=== PATIENT | female | born 1995 | race Caucasian/White ===

== ENCOUNTER 2018-04-25 22:52 | Emergency (ER) | payer SELFPAY ==
--- NOTE | 2018-04-25 22:55 | ERPHSYRPT ---
- History of Present Illness Time Seen by Provider: 04/25/18 22:54 Source: patient Exam Limitations: no limitations, clinical condition Physician History: 22 y/o white female presents with soa. 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 pt has nkda. pt does not have asthma. pt was not exposed to any allergens. pt does not have any cardiac issues. 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) Activities at Onset: none Severity of Dyspnea-Max: moderate Severity of Dyspnea-Current: moderate Possible Cause: no prior episodes Modifying Factors: Improves With: other (stress) Associated Symptoms: anxiety, No chest pain/discomfort, No edema, No ankle swelling, No leg swelling, No muscle spasms hands, No painful breathing, No productive cough, No tightness, No tingling face, No tingling hands Allergies/Adverse Reactions: No Known Drug Allergies Allergy (Verified 04/25/18 23:52) Hx Tetanus, Diphtheria Vaccination/Date Given: Yes Hx Influenza Vaccination/Date Given: Yes Hx Pneumococcal Vaccination/Date Given: No - Review of Systems Constitutional: No Symptoms Eyes: No Symptoms Ears, Nose, & Throat: No Symptoms Respiratory: Dyspnea, No Cough, No Stridor, No Wheezing Cardiac: No Symptoms, No Chest Pain, No Palpitations, No Syncope Abdominal/Gastrointestinal: No Symptoms, No Abdominal Pain, No Nausea, No Vomiting, No Diarrhea Genitourinary Symptoms: No Symptoms, No Dysuria, No Frequency, No Hematuria Musculoskeletal: No Symptoms Skin: No Symptoms Neurological: No Symptoms Psychological: Anxiety Endocrine: No Symptoms Hematologic/Lymphatic: No Symptoms Immunological/Allergic: No Symptoms All Other Systems: Reviewed and Negative - Past Medical History Pertinent Past Medical History: No Neurological History: No Pertinent History ENT History: No Pertinent History Cardiac History: No Pertinent History Respiratory History: No Pertinent History Endocrine Medical History: No Pertinent History Musculoskeletal History: No Pertinent History GI Medical History: No Pertinent History History: No Pertinent History Psycho-Social History: Anxiety, Other (stress) Female Reproductive Disorders: No Pertinent History Other Medical History: denies patient states she is 19 weeks - Past Surgical History Past Surgical History: No Neuro Surgical History: No Pertinent History Cardiac: No Pertinent History Respiratory: No Pertinent History Gastrointestinal: No Pertinent History Genitourinary: No Pertinent History Musculoskeletal: No Pertinent History Female Surgical History: No Pertinent History Other Surgical History: Pt denies - Social History Smoking Status: Never smoker Exposure to second hand smoke: Yes Drug Use: none Patient Lives Alone: No - Nursing Vital Signs Nursing Vital Signs: Initial Vital Signs Temperature 98.1 F 04/25/18 22:57 Pulse Rate 108 H 04/25/18 22:57 Respiratory Rate 28 H 04/25/18 22:57 Blood Pressure 176/105 04/25/18 22:57 O2 Sat by Pulse Oximetry 100 04/25/18 22:57 - Physical Exam General Appearance: mild distress, alert, anxiety Eye Exam: PERRL/EOMI Ears, Nose, Throat Exam: hearing grossly normal, normal ENT inspection, normal pharynx Neck Exam: normal inspection, non-tender, supple, full range of motion Respiratory Exam: normal breath sounds, lungs clear, airway intact, No chest tenderness, No respiratory distress, No accessory muscle use, No rhonchi, No wheezing Cardiovascular/Chest Exam: tachycardia Abdominal/Gastrointestinal Exam: soft, normal bowel sounds, No tenderness, No guarding, No rebound Rectal Exam: not done Extremity Exam: non-tender, normal range of motion, normal inspection Neurologic Exam: alert, oriented x 3, cooperative, 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 Skin Exam: normal color, warm, dry Lymphatic Exam: No adenopathy SpO2 Interpretation: normal Oxygen Delivery: Room Air - Course Nursing assessment & vital signs reviewed: Yes EKG Interpreted by Me: RATE (90), Sinus Rhythm, NORMAL AXIS, NORMAL INTERVALS, NORMAL QRS, Other (no comparison ekg) Ordered Tests: Active Orders 24 hr Category Date Time Status Knowledge Architect STAT Care 04/25/18 23:06 Active IV Insertion STAT Care 04/25/18 23:05 Active Pulse Oximetry (ED) STAT Care 04/25/18 23:05 Active CHEST 1 VIEW (PORTABLE) Stat Exams 04/25/18 23:25 Taken BMP Stat Lab 04/25/18 22:00 Completed CBC W DIFF Stat Lab 04/25/18 22:00 Completed D-DIMER QUANTITATION Stat Lab 04/25/18 22:00 Completed NT PRO BNP Stat Lab 04/25/18 22:00 Completed Medication Summary Discontinued Medications Generic Name Dose Route Start Last Admin Trade Name Freq PRN Reason Stop Dose Admin Lorazepam 1 mg 04/25/18 23:05 04/25/18 23:36 Ativan 2 Mg/1 Ml Vial IV 04/25/18 23:06 1 mg STAT ONE Administration Lorazepam Confirm 04/25/18 23:34 Ativan 2 Mg/1 Ml Vial Administered 04/25/18 23:35 Dose 2 mg .ROUTE .STK-MED ONE Lab/Rad Data: Laboratory Result Diagrams 04/25/18 22:00 04/25/18 22:00 Laboratory Results 04/25/18 04/25/18 04/25/18 Range/Units 22:00 22:00 22:00 WBC 11.4 H (4.0-10.5) K/mm3 RBC 4.64 (4.1-5.4) M/mm3 Hgb 14.0 (12.0-16.0) gm/dl Hct 41.8 (35-47) % MCV 90.1 (78-100) fl MCH 30.2 (26-32) pg MCHC 33.5 (32-36) g/dl RDW 12.6 (11.5-14.0) % Plt Count 371 (150-450) K/mm3 MPV 9.6 H (6-9.5) fl Gran % 48.3 (36.0-66.0) % Eos # (Auto) 0.84 H (0-0.5) Absolute Lymphs (auto) 4.24 (1.0-4.6) Absolute Monos (auto) 0.76 (0.0-1.3) Lymphocytes % 37.2 (24.0-44.0) % Monocytes % 6.7 (0.0-12.0) % Eosinophils % 7.4 H (0.00-5.0) % Basophils % 0.4 (0.0-0.4) % Absolute Granulocytes 5.52 (1.4-6.9) Basophils # 0.04 (0-0.4) D-Dimer < 215 L (215-500) ng/mL Sodium 143 (137-145) mmol/L Potassium 3.0 L (3.5-5.1) mmol/L Chloride 104 (98-107) mmol/L Carbon Dioxide 24 (22-30) mmol/L Anion Gap 18.0 H (5-15) MEQ/L BUN 7 (7-17) mg/dL Creatinine 0.65 (0.52-1.04) mg/dL Estimated GFR > 60.0 ML/MIN Glucose 136 H (74-106) mg/dL Calcium 8.8 (8.4-10.2) mg/dL NT-Pro-B Natriuret Pep 161 (0-450) pg/mL - Progress Progress: improved, re-examined Air Movement: good Progress Note: 04/25/18 23:54 cxr- no acute process Blood Culture(s) Obtained: No Antibiotics given: No Counseled pt/family regarding: lab results, diagnosis, need for follow-up, rad results - Departure Time of Disposition: 23:55 Departure Disposition: Home Clinical Impression: Bronchitis, Hypokalemia Condition: Stable Critical Care Time: No Referrals: DONNY REILLY [Primary Care Provider] - Additional Instructions: drink plenty of fluids. eat nut and green leafy vegetable. follow up with primary doctor for further management Prescriptions: Prednisone 10 mg [Deltasone 10 mg] 10 mg PO TID #9 tablet
[2018-04-25] MEDS ORDERED: Ativan 2 MG/1 ML VIAL IV ONE (23:05)
[2018-04-25 23:17] LABS: BASOPHIL % 0.4 % (0.0-0.4); Basophil (Absolute #) 0.04 (0-0.4); Eosinophil % 7.4 % (0.00-5.0); Eosinophil (Absolute #) 0.84 (0-0.5); Granulocyte Absolute (ANC) 5.52 (1.4-6.9); Granulocytes % 48.3 % (36.0-66.0); Hematocrit 41.8 % (35-47); Lymphocyte (Absolute #) 4.24 (1.0-4.6); Lymphocytes % 37.2 % (24.0-44.0); Mean Cell Volume 90.1 fl (78-100); Mean Corpuscular Hemoglobin 30.2 pg (26-32); Mean Corpuscular Hgb Concent. 33.5 g/dl (32-36); Mean Platelet Volume 9.6 fl (6-9.5); Monocyte (Absolute #) 0.76 (0.0-1.3); Monocytes % 6.7 % (0.0-12.0); Platelet Count 371 K/mm3 (150-450); Red Blood Count 4.64 M/mm3 (4.1-5.4); Red Cell Distribution Width 12.6 % (11.5-14.0); White Blood Count 11.4 K/mm3 (4.0-10.5)
[2018-04-25] MEDS ORDERED: Ativan 2 MG/1 ML VIAL ONE (23:34)
[2018-04-25 23:41] LABS: BLOOD UREA NITROGEN 7 mg/dL (7-17); CHLORIDE 104 mmol/L (98-107); Calcium 8.8 mg/dL (8.4-10.2); Carbon Dioxide 24 mmol/L (22-30); Creatinine 1 0.65 mg/dL (0.52-1.04); Glucose 136 mg/dL (74-106); NT PRO BNP 161 pg/mL (0-450); SODIUM 143 mmol/L (137-145)
[2018-04-25] MEDS ORDERED: solu-MEDROL 125 MG IV ONE (23:57)
[2018-04-25] MEDS ORDERED: Klor Con 10 MEQ PO ONE (23:57)
[2018-04-26] MEDS ORDERED: solu-MEDROL 125 MG ONE (00:05)
[2018-04-26] MEDS ORDERED: Klor Con 10 MEQ PO ONE (00:05)
[2018-04-26 00:07] VITALS: BP 141/80; PULSE 88; O2SAT 96
--- NOTE | 2018-04-26 09:12 | XRAY ---
Indication: Short of breath. Anxiety. Comparison: None Portable chest demonstrates normal heart, lungs, and bony thorax with a few incidental tiny calcified granulomas.
== END 2018-04-26 00:47 | disposition home or self-care (01) ==
LOC: ED 22:52
DX: O26.892 Other specified pregnancy related conditions, second trimester (principal); J40 Bronchitis, not specified as acute or chronic; E87.6 Hypokalemia; Z3A.19 19 weeks gestation of pregnancy; R06.02 Shortness of breath
CPT/HCPCS: 36000; 36415; 71045; 80048; 83880; 85025; 85379; 93041; 96374; 96375; 99284; J2060; J2930; A9270-GY

== ENCOUNTER 2019-12-13 12:32 | Emergency (ER) | payer BC, MEDICAID ==
[2019-12-13 13:11] VITALS: O2SAT 100
--- NOTE | 2019-12-13 13:11 | ERPHSYRPT ---
- History of Present Illness Time Seen by Provider: 12/13/19 12:51 Source: patient Exam Limitations: no limitations Patient Subjective Stated Complaint: Laceration Triage Nursing Assessment: Patient ambulated back to ED and transferred self to bed. Patient A+O X3. Patient's skin pink, warm and dry. Patient states she was holding celery while cutting it when the knife slipped cutting her left hand, 4th digit. Patient has 1cm X 1cm laceration noted to left hand, 4th digit. Patient states pain is constant aching pain 5/10. Physician History: 24 years old right-handed dominant female up-to-date with tetanus presented in the ER with chief complaint of left fourth digit laceration with a sharp knife while cutting some stuff at home prior to arrival. There was bleeding initially but stopped after applying pressure. She is complaining of mild to moderate dull aching pain in the finger which is aggravated with movements and applying pressure and better with being still. No injury anywhere else. Timing/Duration: today, sudden Quality: painful Severity: moderate Location: hands Allergies/Adverse Reactions: No Known Drug Allergies Allergy (Verified 12/13/19 12:40) Hx Tetanus, Diphtheria Vaccination/Date Given: (unknown) Hx Influenza Vaccination/Date Given: No Hx Pneumococcal Vaccination/Date Given: No Immunizations Up to Date: Yes Travel Risk - International Travel Have you traveled outside of the country in past 3 weeks: No - Coronavirus Screening Are you exhibiting any of the following symptoms?: No Close contact with a COVID-19 positive Pt in past 14-21 Days: No - Review of Systems Constitutional: No Symptoms Eyes: No Symptoms Ears, Nose, & Throat: No Symptoms Respiratory: No Symptoms Cardiac: No Symptoms Abdominal/Gastrointestinal: No Symptoms Musculoskeletal: Injury Skin: Skin Lesions Neurological: No Symptoms Psychological: Anxiety - Past Medical History Pertinent Past Medical History: No Neurological History: No Pertinent History ENT History: No Pertinent History Cardiac History: No Pertinent History Respiratory History: No Pertinent History Endocrine Medical History: No Pertinent History Musculoskeletal History: No Pertinent History GI Medical History: No Pertinent History History: No Pertinent History Psycho-Social History: Anxiety, Other Female Reproductive Disorders: No Pertinent History Other Medical History: denies patient states she is 19 weeks - Past Surgical History Past Surgical History: No Neuro Surgical History: No Pertinent History Cardiac: No Pertinent History Respiratory: No Pertinent History Gastrointestinal: No Pertinent History Genitourinary: No Pertinent History Musculoskeletal: No Pertinent History Female Surgical History: No Pertinent History Other Surgical History: Pt denies - Social History Smoking Status: Never smoker Exposure to second hand smoke: Yes Drug Use: none Patient Lives Alone: No - Female History Hx Last Menstrual Period: 2 weeks ago Hx Now: No - Nursing Vital Signs Nursing Vital Signs: Initial Vital Signs Temperature 98.4 F 12/13/19 12:40 Pulse Rate 98 H 12/13/19 12:40 Respiratory Rate 18 12/13/19 12:40 Blood Pressure 142/102 12/13/19 12:40 O2 Sat by Pulse Oximetry 100 12/13/19 12:40 Pain Scale Pain Intensity 4 - Physical Exam General Appearance: no apparent distress Eye Exam: eyes nml inspection Neck Exam: normal inspection Respiratory Exam: normal breath sounds, lungs clear Cardiovascular Exam: regular rate/rhythm, normal heart sounds Extremity Exam: normal range of motion, lacerations (3 cm linear to carb laceration on left for finger pulp on the lateral aspect closer to the lateral end of the nail and going to the tip. No active bleeding or spurting. Cap refill less than 2 seconds. Intact sensations.) Neurologic Exam: alert, oriented x 3, nml cerebellar function Skin Exam: normal color SpO2 Interpretation: normal SpO2: 100 O2 Delivery: Room Air Procedures - Laceration/Wound Repair Left Finger Wound Location: Left Wound Length (cm): 3 Wound's Depth, Shape: superficial, linear Wound Explored: clean Irrigated: Yes Hibiclens Prep: Yes Anesthesia: digital block, 1% Lidocaine Wound Repaired With: sutures Suture Size/Type: 4-0, prolene Number of Sutures: 5 Layer Closure?: No Sterile Dressing Applied?: Yes - Course Nursing assessment & vital signs reviewed: Yes - Progress Progress: improved Progress Note: 12/13/19 13:19 Laceration is cleaned and repaired. Recommended Tylenol/ibuprofen for pain. It is a clean wound, do not think needs antibiotics. Counseled pt/family regarding: diagnosis, need for follow-up - Departure Departure Disposition: Home Clinical Impression: Finger laceration Qualifiers: Encounter type: initial encounter Finger: ring finger Damage to nail status: without damage Foreign body presence: without foreign body Laterality: left Qualified Code(s): S61.215A - Laceration without foreign body of left ring finger without damage to nail, initial encounter Condition: Stable Critical Care Time: No Referrals: DONNY REILLY [Primary Care Provider] - Instructions: Laceration Repair With Stitches (DC) Additional Instructions: It clean. Use Tylenol/ibuprofen as needed for pain. Follow-up with primary care for reevaluation. Suture removal in 7 to 10 days. Return to ER for excruciating pain, swelling, redness, discharge, fever or chills. Prescriptions: Ibuprofen 600 mg PO Q6HPRN PRN 10 Days #20 tablet PRN Reason: Pain
[2019-12-13 13:21] VITALS: BP 118/90; PULSE 78
== END 2019-12-13 13:20 | disposition home or self-care (01) ==
LOC: ED 12:32
DX: S61.215A Laceration without foreign body of left ring finger without damage to nail, initial encounter (principal); W26.0XXA Contact with knife, initial encounter; Y93.G1 Activity, food preparation and clean up
CPT/HCPCS: 12002; 99283

== ENCOUNTER 2020-06-24 01:43 | Emergency (ER) | payer SELFPAY ==
[2020-06-24 01:54] VITALS: O2SAT 99
--- NOTE | 2020-06-24 02:04 | ERPHSYRPT ---
- History of Present Illness Time Seen by Provider: 06/24/20 01:55 Source: patient Patient Subjective Stated Complaint: pt brought in for senior care clearance. pt states she has smoked some fake marijuana tonight and took a xanax earlier in the day Triage Nursing Assessment: pt alert and oriented, answers questions approp. pt ambularoty, steady gait noted. arrives with law enforcement and ambulates into room without diff. respirations nonlabored. skin warm and dry. pt cooperative at this time. Physician History: This is a 24-year-old white female who presents with law enforcement for medical clearance for incarceration. Patient admits to consuming synthetic marijuana but no alcohol use. She also took a Xanax earlier today. She has no complaints whatsoever. She has no chest pain no shortness of breath no abdominal pain. Timing/Duration: today Severity: mild Modifying Factors: Improves With: nothing Associated Symptoms: denies symptoms Allergies/Adverse Reactions: No Known Drug Allergies Allergy (Verified 06/24/20 01:54) Home Medications: No Reportable Medications [No Reported Medications] 06/24/20 [History] Hx Tetanus, Diphtheria Vaccination/Date Given: Yes (unknown) Hx Influenza Vaccination/Date Given: No Hx Pneumococcal Vaccination/Date Given: No Immunizations Up to Date: Yes Travel Risk - International Travel Have you traveled outside of the country in past 3 weeks: No - Coronavirus Screening Are you exhibiting any of the following symptoms?: No Close contact with a COVID-19 positive Pt in past 14-21 Days: No - Review of Systems Constitutional: No Symptoms Eyes: No Symptoms Ears, Nose, & Throat: No Symptoms Respiratory: No Symptoms Cardiac: No Symptoms Abdominal/Gastrointestinal: No Symptoms Genitourinary Symptoms: No Symptoms Musculoskeletal: No Symptoms Skin: No Symptoms Neurological: No Symptoms Psychological: No Symptoms Endocrine: No Symptoms Hematologic/Lymphatic: No Symptoms Immunological/Allergic: No Symptoms All Other Systems: Reviewed and Negative - Past Medical History Pertinent Past Medical History: No Neurological History: No Pertinent History ENT History: No Pertinent History Cardiac History: No Pertinent History Respiratory History: No Pertinent History Endocrine Medical History: No Pertinent History Musculoskeletal History: No Pertinent History GI Medical History: No Pertinent History History: No Pertinent History Psycho-Social History: Anxiety, Other Female Reproductive Disorders: No Pertinent History Other Medical History: denies patient states she is 19 weeks - Past Surgical History Past Surgical History: No Neuro Surgical History: No Pertinent History Cardiac: No Pertinent History Respiratory: No Pertinent History Gastrointestinal: No Pertinent History Genitourinary: No Pertinent History Musculoskeletal: No Pertinent History Female Surgical History: No Pertinent History Other Surgical History: Pt denies - Social History Smoking Status: Current some day smoker Exposure to second hand smoke: Yes Drug Use: other Patient Lives Alone: No - Female History Hx Last Menstrual Period: current Hx Now: No - Nursing Vital Signs Nursing Vital Signs: Initial Vital Signs Temperature 98.3 F 06/24/20 01:46 Pulse Rate 90 06/24/20 01:46 Respiratory Rate 16 06/24/20 01:46 Blood Pressure 143/107 06/24/20 01:46 O2 Sat by Pulse Oximetry 99 06/24/20 01:46 Pain Scale Pain Intensity 0 - Physical Exam General Appearance: no apparent distress, alert, anxiety Eye Exam: PERRL/EOMI, eyes nml inspection Ears, Nose, Throat Exam: normal ENT inspection, moist mucous membranes Neck Exam: normal inspection, non-tender, supple, full range of motion Respiratory Exam: normal breath sounds, lungs clear, airway intact, No chest tenderness, No respiratory distress Cardiovascular Exam: regular rate/rhythm, normal heart sounds, normal peripheral pulses Gastrointestinal/Abdomen Exam: soft, normal bowel sounds, No tenderness Pelvic Exam: not done Rectal Exam: not done Back Exam: normal inspection, normal range of motion, No CVA tenderness, No vertebral tenderness Extremity Exam: normal inspection, normal range of motion, pelvis stable Neurologic Exam: alert, oriented x 3, cooperative, 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 Clinically, the patient is stable and medically cleared for incarceration. Counseled pt/family regarding: diagnosis, need for follow-up - Departure Departure Disposition: Halfway/Group Home Clinical Impression: Medical clearance for incarceration Condition: Stable Critical Care Time: No Referrals: DONNY REILLY [Primary Care Provider] -
[2020-06-24 02:16] VITALS: BP 131/90; PULSE 84
== END 2020-06-24 02:24 | disposition home or self-care (01) ==
LOC: ED 01:43
DX: Z02.89 Encounter for other administrative examinations (principal)
CPT/HCPCS: 99283

== ENCOUNTER 2023-07-12 03:07 | Observation (INO) | payer OTHER ==
[2023-07-12] MEDS ORDERED: PROVENTIL 2.5 MG/3 ML NEB IH ONE (03:11)
[2023-07-12] MEDS: PROVENTIL 2.5 MG/3 ML NEB IH ONE (03:16)
[2023-07-12] MEDS ORDERED: solu-MEDROL ONE (03:30)
[2023-07-12] MEDS ORDERED: Sterile H2O 10 ml IJ ONE (03:30)
[2023-07-12] MEDS ORDERED: Zithromax 500 MG/ 250 ML NaCl Premix 0 MG/0 ML IVPB IV ONE (03:37)
--- NOTE | 2023-07-12 03:38 | ERPHSYRPT ---
- History of Present Illness Time Seen by Provider: 07/12/23 03:30 Source: patient Exam Limitations: no limitations Patient Subjective Stated Complaint: pt states that she has had this cough for the past month. pt states she finished a medroldose pack a week and a half ago. pt states that she can't catch her breath Triage Nursing Assessment: pt ambulated into the er; pt is axo x4; c/o SOB; respiratory distress present; audible wheezing present; upper airway wheezing; 99% on room air; dry hacking cough present; skin PDW; hypertensive Physician History: Patient is a 27-year-old female history of exercise-induced asthma, current smoker presents to our emergency department for evaluation of of shortness of breath. Patient has had a cough for approximately 1 month. Cough is dry nonproductive. She followed up at [facility] patient reports she was treated with a Medrol Dosepak. Patient just completed her Medrol Dosepak and states that her symptoms did not improve. Patient shortness of breath has been progressive. Patient is wheezing. No fever. No nausea vomiting. No history of PE DVT. Symptoms are moderate in intensity. Activity worsens symptoms. Symptoms improved with rest. Mother at bedside. They voiced no other complaints or concerns at this time. Portions of this note were created with voice recognition technology. There may be grammatical, spelling, punctuation or sound alike errors Timing/Duration: week(s) (1 month) Activities at Onset: none Severity of Dyspnea-Max: moderate Severity of Dyspnea-Current: mild Possible Cause: occasional episodes Modifying Factors: Improves With: activity Associated Symptoms: cough, No fever, No wheezing Allergies/Adverse Reactions: No Known Drug Allergies Allergy (Verified 07/12/23 03:08) Home Medications: Phentermine HCl [Adipex-P] 37.5 mg PO DAILY 07/12/23 [History] Topiramate [Topamax] 25 mg PO DAILY 07/12/23 [History] Hx Tetanus, Diphtheria Vaccination/Date Given: Yes (unknown) Hx Influenza Vaccination/Date Given: No Hx Pneumococcal Vaccination/Date Given: No Travel Risk - International Travel Have you traveled outside of the country in past 3 weeks: No - Coronavirus Screening Are you exhibiting any of the following symptoms?: Yes Symptoms: Cough: New Onset, Shortness of Breath - Vaccine Status Have you recieved a Covid-19 vaccination: Yes Mold Injector: Unknown - Vaccination Dates Dates if Unknown: 2020 - Review of Systems Constitutional: No Symptoms, No Fever, No Chills Eyes: No Symptoms Ears, Nose, & Throat: No Symptoms Respiratory: No Symptoms, No Cough, No Dyspnea Cardiac: No Symptoms, No Chest Pain, No Edema, No Syncope Abdominal/Gastrointestinal: No Symptoms, No Abdominal Pain, No Nausea, No Vomiting, No Diarrhea Genitourinary Symptoms: No Symptoms, No Dysuria Musculoskeletal: No Symptoms, No Back Pain, No Neck Pain Skin: No Symptoms, No Rash Neurological: No Symptoms, No Dizziness, No Focal Weakness, No Sensory Changes Psychological: No Symptoms Endocrine: No Symptoms Hematologic/Lymphatic: No Symptoms Immunological/Allergic: No Symptoms All Other Systems: Reviewed and Negative - Past Medical History Pertinent Past Medical History: Yes Neurological History: No Pertinent History ENT History: No Pertinent History Cardiac History: No Pertinent History Respiratory History: No Pertinent History Endocrine Medical History: No Pertinent History Musculoskeletal History: No Pertinent History GI Medical History: No Pertinent History History: No Pertinent History Psycho-Social History: Anxiety, Other Female Reproductive Disorders: No Pertinent History Other Medical History: denies patient states she is 19 weeks - Past Surgical History Past Surgical History: No Neuro Surgical History: No Pertinent History Cardiac: No Pertinent History Respiratory: No Pertinent History Gastrointestinal: No Pertinent History Genitourinary: No Pertinent History Musculoskeletal: No Pertinent History Female Surgical History: No Pertinent History Other Surgical History: Pt denies - Social History Smoking Status: Light tobacco smoker Exposure to second hand smoke: Yes Drug Use: other Patient Lives Alone: No - Female History Hx Now: No - Nursing Vital Signs Nursing Vital Signs: Initial Vital Signs Temperature 97.4 F 07/12/23 03:07 Pulse Rate 109 H 07/12/23 03:07 Respiratory Rate 20 07/12/23 03:07 Blood Pressure 166/117 07/12/23 03:07 O2 Sat by Pulse Oximetry 99 07/12/23 03:07 Pain Scale Pain Intensity 5 - Physical Exam General Appearance: no apparent distress, alert Eye Exam: PERRL/EOMI Ears, Nose, Throat Exam: hearing grossly normal, normal ENT inspection, normal pharynx Neck Exam: normal inspection, supple, full range of motion Respiratory Exam: diminished breath sounds, rhonchi, wheezing Cardiovascular/Chest Exam: normal heart sounds, regular rate/rhythm Abdominal/Gastrointestinal Exam: soft, No tenderness, No distention, No mass Extremity Exam: non-tender, normal range of motion, normal inspection, no calf tenderness, no pedal edema Neurologic Exam: alert, oriented x 3, cooperative, vacuum repairer II-XII nml as tested, sensation nml, No motor deficits Skin Exam: normal color, warm, No dry Lymphatic Exam: No adenopathy SpO2 Interpretation: normal SpO2: 97 O2 Delivery: Room Air - Course Nursing assessment & vital signs reviewed: Yes EKG Interpreted by Me: RATE ([id number]), Sinus Tach, NORMAL AXIS, NORMAL INTERVALS - Radiology Exams Chest X-ray Interpretation: Teleradiologist Report (No acute findings) Ordered Tests: Active Orders 24 hr Category Date Time Status Kitchen Supervisor STAT Care 07/12/23 03:26 Active IV Insertion STAT Care 07/12/23 03:26 Active Pulse Oximetry (ED) STAT Care 07/12/23 03:26 Active CHEST 1 VIEW (PORTABLE) Stat Exams 07/12/23 05:01 Ordered CBC W DIFF Stat Lab 07/12/23 04:38 Completed CMP Stat Lab 07/12/23 03:26 Ordered D-DIMER QUANTITATIVE Stat Lab 07/12/23 04:38 Completed HCG QUALITATIVE, URINE Stat Lab 07/12/23 04:38 Completed UA W/RFX UR CULTURE Stat Lab 07/12/23 04:38 Completed Respiratory Therapy Assessment DAILY RT 07/12/23 03:23 Active Medication Summary Generic Name Dose Route Start Last Admin Trade Name Freq PRN Reason Stop Dose Admin Magnesium Sulfate/Dextrose 100 mls @ 100 mls/hr 07/12/23 03:45 Magnesium 1 Gm / 100 Ml D5w IV 07/12/23 05:44 Q1H DEDRA Discontinued Medications Generic Name Dose Route Start Last Admin Trade Name Freq PRN Reason Stop Dose Admin Albuterol Sulfate Confirm 07/12/23 03:11 Albuterol Sulfate 2.5 Mg/3 Ml Neb Administered 07/12/23 03:12 Dose 2.5 mg IH .STK-MED ONE Albuterol Sulfate 2.5 mg 07/12/23 03:15 07/12/23 03:16 Albuterol Sulfate 2.5 Mg/3 Ml Neb IH 07/12/23 03:16 2.5 mg STAT ONE Administration Methylprednisolone Sodium 0 mg 07/12/23 03:26 07/12/23 05:32 Succinate 125 mg/ Sterile IV 07/12/23 03:27 Not Given Water 2 ml STAT ONE Methylprednisolone Sodium 0 mg 07/12/23 05:32 Succinate 125 mg/ Sterile IM 07/12/23 05:33 Water 2 ml STAT ONE Ceftriaxone Sodium/Dextrose 2 g in 50 mls @ 100 mls/hr 07/12/23 03:37 Rocephin 2 Gm-D5w 50ml Bag IV 07/12/23 04:06 STAT STA Azithromycin 500 mg in 250 mls @ 250 mls/hr 07/12/23 03:37 Zithromax 500 Mg/ 250 Ml Nacl Premix IV 07/12/23 04:36 STAT STA Azithromycin Confirm 07/12/23 03:37 Zithromax 500 Mg/ 250 Ml Nacl Premix Administered 07/12/23 03:38 Dose 500 mg in 250 mls @ ud IV .STK-MED ONE Methylprednisolone Sodium Succinate Confirm 07/12/23 03:30 Methylprednis Sod Succ 125 Mg/2 Ml Vial Administered 07/12/23 03:31 Dose 125 mg .ROUTE .STK-MED ONE Sterile Water Confirm 07/12/23 03:30 Water For Injection,Sterile 10 Ml Vial Administered 07/12/23 03:31 Dose 10 ml IJ .STK-MED ONE Lab/Rad Data: Laboratory Result Diagrams 07/12/23 04:38 Laboratory Results 07/12/23 07/12/23 07/12/23 Range/Units 04:38 04:38 04:38 WBC (4.0-10.5) x10^3/uL RBC (4.1-5.4) x10^6/uL Hgb (12.0-16.0) g/dL Hct (35-47) % MCV (78-100) fL MCH (26-32) pg MCHC (32-36) g/dL RDW (11.5-14.0) % Plt Count (150-450) x10^3/uL MPV (7.5-11.0) fL Gran % (36.0-66.0) % Immature Gran % (Auto) (0.00-0.4) % Nucleat RBC Rel Count (0.00-0.1) % Eos # (Auto) (0-0.5) x10^3/uL Immature Gran # (Auto) (0.00-0.03) x10^3u/L Absolute Lymphs (auto) (1.0-4.6) x10^3/uL Absolute Monos (auto) (0.0-1.3) x10^3/uL Absolute Nucleated RBC (0.00-0.01) x10^3u/L Lymphocytes % (24.0-44.0) % Monocytes % (0.0-12.0) % Eosinophils % (0.00-5.0) % Basophils % (0.0-0.4) % Absolute Granulocytes (1.4-6.9) x10^3/uL Basophils # (0-0.4) x10^3/uL D-Dimer < 0.19 (0.0-0.50) mg/L Urine Color (Yellow) Urine Appearance (Clear) Urine pH (4.6-8.0) Ur Specific [place] (1.005-1.030) Urine Protein (Negative) Urine Glucose (UA) (Negative) mg/dL Urine Ketones (Negative) Urine Blood (Negative) Urine Nitrite (Negative) Urine Bilirubin (Negative) Urine Urobilinogen (0.2) mg/dL Ur Leukocyte Esterase (Negative) U Hyaline Cast (Auto) (0-2) /LPF Urine Microscopic RBC (0-5) /HPF Urine Microscopic WBC (0-5) /HPF Ur Epithelial Cells (None Seen) /HPF Urine Bacteria (None Seen) /HPF Urine Culture Reflexed (NO) Urine HCG, Qual NEGATIVE (NEGATIVE) Influenza Type A Ag NEGATIVE (NEGATIVE) Influenza Type B Ag NEGATIVE (NEGATIVE) RSV (PCR) NEGATIVE (NEGATIVE) SARS-CoV-2 (PCR) NEGATIVE (NEGATIVE) 07/12/23 07/12/23 Range/Units 04:38 04:38 WBC 11.4 H (4.0-10.5) x10^3/uL RBC 4.14 (4.1-5.4) x10^6/uL Hgb 13.1 (12.0-16.0) g/dL Hct 39.5 (35-47) % MCV 95.4 (78-100) fL MCH 31.6 (26-32) pg MCHC 33.2 (32-36) g/dL RDW 12.2 (11.5-14.0) % Plt Count 385 (150-450) x10^3/uL MPV 9.7 (7.5-11.0) fL Gran % 69.4 H (36.0-66.0) % Immature Gran % (Auto) 0.3 (0.00-0.4) % Nucleat RBC Rel Count 0.0 (0.00-0.1) % Eos # (Auto) 0.89 H (0-0.5) x10^3/uL Immature Gran # (Auto) 0.03 (0.00-0.03) x10^3u/L Absolute Lymphs (auto) 1.83 (1.0-4.6) x10^3/uL Absolute Monos (auto) 0.63 (0.0-1.3) x10^3/uL Absolute Nucleated RBC 0.00 (0.00-0.01) x10^3u/L Lymphocytes % 16.0 L (24.0-44.0) % Monocytes % 5.5 (0.0-12.0) % Eosinophils % 7.8 H (0.00-5.0) % Basophils % 1.0 (0.0-0.4) % Absolute Granulocytes 7.93 H (1.4-6.9) x10^3/uL Basophils # 0.11 (0-0.4) x10^3/uL D-Dimer (0.0-0.50) mg/L Urine Color Yellow (Yellow) Urine Appearance Clear (Clear) Urine pH 6.5 (4.6-8.0) Ur Specific [place] 1.015 (1.005-1.030) Urine Protein Negative (Negative) Urine Glucose (UA) Negative (Negative) mg/dL Urine Ketones Negative (Negative) Urine Blood Negative (Negative) Urine Nitrite Negative (Negative) Urine Bilirubin Negative (Negative) Urine Urobilinogen 0.2 (0.2) mg/dL Ur Leukocyte Esterase Negative (Negative) U Hyaline Cast (Auto) NONE SEEN (0-2) /LPF Urine Microscopic RBC 0-2 (0-5) /HPF Urine Microscopic WBC 0-2 (0-5) /HPF Ur Epithelial Cells None Seen (None Seen) /HPF Urine Bacteria None Seen (None Seen) /HPF Urine Culture Reflexed NO (NO) Urine HCG, Qual (NEGATIVE) Influenza Type A Ag (NEGATIVE) Influenza Type B Ag (NEGATIVE) RSV (PCR) (NEGATIVE) SARS-CoV-2 (PCR) (NEGATIVE) - Progress Progress: improved Air Movement: good Progress Note: Patient is a 27-year-old female presents to our ED for evaluation of progressive shortness of breath hacking cough. On exam, patient has audible wheezing. On auscultation wheezing diminished coarse breath sounds are observed. Patient has a resting tachycardia. D-dimer negative. Chest x-ray shows no acute findings. Patient just completed a course of Solu-Medrol with no significant improvement. Patient received albuterol nebulizer treatment in our ED. Solu- Medrol administered. Patient improved but still not ready to be discharged. Patient will require observation, further evaluation and treatment before discharge. Plan of care discussed with patient. She agrees to admission to [facility] for further evaluation and treatment. Portions of this note were created with voice recognition technology. There may be grammatical, spelling, punctuation or sound alike errors Complexity problem addressed is moderate acute complicated No critical care time Complexity of data reviewed and analyzed extensive. Test ordered test reviewed. Results analyzed and correlated clinically with history and physical exam. Management discussed with hospitalist who accepts admission to observation. Risk of complication and or risk of morbidity/mortality of patient management is high. Patient requires hospitalization for further evaluation and treatment. Vitals stable. Time spent admit patient is approximately 20 minutes. Plan of care established for shared decision making. No social determinants of health present impede follow-up. Portions of this note were created with voice recognition technology. There may be grammatical, spelling, punctuation or sound alike errors 07/12/23 05:43 Case and management discussed with Dr. Walker at 5:[address] Walker accepts admission to observation. 07/12/23 05:51 Blood Culture(s) Obtained: Yes Antibiotics given: Yes Counseled pt/family regarding: lab results, diagnosis, rad results - Departure Departure Disposition: Observation Clinical Impression: Cough, Shortness of breath, Reactive airway disease, Tachycardia Condition: Stable Critical Care Time: No Referrals: NEVIN CLARKE FLEET DIRECTOR [Primary Care Provider] - Follow up/PCP as directed
[2023-07-12 04:51] LABS: Absolute Neutrophil Ct (ANC) 7.93 x10^3/uL (1.4-6.9); Basophil (Absolute #) 0.11 x10^3/uL (0-0.4); Eosinophil % 7.8 % (0.00-5.0); Eosinophil (Absolute #) 0.89 x10^3/uL (0-0.5); Hematocrit 39.5 % (35-47); Hemoglobin 13.1 g/dL (12.0-16.0); IMMATURE GRAN # 0.03 x10^3u/L (0.00-0.03); IMMATURE GRAN % 0.3 % (0.00-0.4); Lymphocyte (Absolute #) 1.83 x10^3/uL (1.0-4.6); Mean Cell Volume 95.4 fL (78-100); Mean Corpuscular Hemoglobin 31.6 pg (26-32); Mean Corpuscular Hgb Concent. 33.2 g/dL (32-36); Mean Platelet Volume 9.7 fL (7.5-11.0); Monocyte (Absolute #) 0.63 x10^3/uL (0.0-1.3); Monocytes % 5.5 % (0.0-12.0); Neutrophil % 69.4 % (36.0-66.0); Platelet Count 385 x10^3/uL (150-450); Red Blood Count 4.14 x10^6/uL (4.1-5.4); Red Cell Distribution Width 12.2 % (11.5-14.0); White Blood Count 11.4 x10^3/uL (4.0-10.5)
[2023-07-12 05:05] LABS: HCG URINE TEST NEGATIVE (NEGATIVE)
[2023-07-12 05:09] LABS: Appearance Clear (Clear); Bacteria None Seen /HPF (None Seen); Bilirubin Negative (Negative); Blood Negative (Negative); Epithelial Cells None Seen /HPF (None Seen); Glucose, Urine Negative (Negative); Hyaline Casts NONE SEEN /LPF (0-2); Ketones Negative (Negative); Leukocyte Esterase Negative (Negative); Nitrite Negative (Negative); Ph 6.5 (4.6-8.0); Protein,Urine Dip Negative (Negative); RBC 0-2 /HPF (0-5); Specific Gravity 1.015 (1.005-1.030); Urobilinogen 0.2 mg/dL (0.2); WBC 0-2 /HPF (0-5)
[2023-07-12 05:13] LABS: ADD URINE CULTURE? NO (NO)
[2023-07-12 05:28] LABS: INFLUENZA A NEGATIVE (NEGATIVE); INFLUENZA B NEGATIVE (NEGATIVE); RESPIRATORY SYNCTIAL VIRUS NEGATIVE (NEGATIVE); SARS-CoV-2 Xpert Express NEGATIVE (NEGATIVE)
[2023-07-12] MEDS: solu-MEDROL 125 MG, Sterile H2O 10 ml 2 ML IV ONE (05:32)
[2023-07-12] MEDS: solu-MEDROL 125 MG, Sterile H2O 10 ml 2 ML IM ONE (05:51)
[2023-07-12] MEDS ORDERED: Zithromax 500 MG/ 250 ML NaCl Premix 500 MG/250 ML IVPB IV ONE (06:30)
[2023-07-12] MEDS: Magnesium 1 Gm / 100 Ml D5W*** 100 ML IV SCH (06:31)
[2023-07-12] MEDS: Zithromax 500 MG/ 250 ML NaCl Premix 500 MG/250 ML IVPB IV STA (06:31)
[2023-07-12] MEDS ORDERED: Zofran 4 MG/2 ML VIAL ONE (07:12)
[2023-07-12] MEDS: Zofran 4 MG/2 ML VIAL IV ONE (07:13)
[2023-07-12] MEDS ORDERED: ROCEPHIN 2 Gm-D5w 50ML BAG** 2 G/50 ML IVPB IV ONE (07:46)
[2023-07-12] MEDS: ROCEPHIN 2 Gm-D5w 50ML BAG** 2 G/50 ML IVPB IV STA (07:47)
--- NOTE | 2023-07-12 08:44 | PCM.HP ---
History of Present Illness - Chief Complaint Chief Complaint: Reactive airway, shortness of breath tachycardia Date: 07/12/23 History of Present Illness: Ms. KINGSLEY is a 27 year old female with a history of exercise induced asthma who presents to the ER with complaints of increasing shortness of breath and non productive cough for about a month. She had taken Medrol dose pack which helped a little bit but took her last dose about a week and a half ago. She was evaluated in the ER with a persistent wheeze, was given steroids/nebulizers but did not improve, so she has been recommended for admission. She was also given one dose of Rocephin. CXR appears clear, d-dimer normal. She denies any fever or chills. She denies any chest pain or palpitations. No nausea, vomiting or diarrhea. No dysuria, hematuria or foamy urine. She states that she does smoke occasionally when she drinks alcohol. - Review of Systems Constitutional: No Fever, No Chills Eyes: No Vision Changes Ears, Nose, & Throat: No Painful Swallowing Respiratory: Cough, Short Of Breath, Wheezing, No Orthopnea Cardiac: No Chest Pain, No Edema, No Palpitations Abdominal/Gastrointestinal: No Abdominal Pain, No Nausea, No Vomiting, No Diarrhea Genitourinary Symptoms: No Dysuria, No Frequency, No Hematuria Musculoskeletal: No Neck Pain, No Fall Skin: No Pruritis, No Rash Neurological: No Dizziness, No Focal Weakness, No Gait Changes Psychological: No Suicidal Ideations Endocrine: No Polyuria, No Polydipsia Medications & Allergies Home Medications: Home Medication List Phentermine HCl [Adipex-P] 37.5 mg PO DAILY 07/12/23 [History Confirmed 07/12/23] Topiramate [Topamax] 25 mg PO DAILY 07/12/23 [History Confirmed 07/12/23] Allergies/Adverse Reactions: Allergies Allergy/AdvReac Type Severity Reaction Status Date / Time No Known Drug Allergies Allergy Verified 07/12/23 03:08 - Past Medical History Past Medical History: Yes Neurological History: No Pertinent History ENT History: No Pertinent History Cardiac History: No Pertinent History Respiratory History: No Pertinent History Endocrine Medical History: No Pertinent History Musculoskelatal History: No Pertinent History GI Medical History: No Pertinent History History: No Pertinent History Pyscho-Social History: Anxiety Reproductive Disorders: No Pertinent History Comment: denies patient states she is 19 weeks - Female History Are you now?: No - Past Surgical History Past Surgical History: No Neuro Surgical History: No Pertinent History Cardiac History: No Pertinent History Respiratory Surgery: No Pertinent History GI Surgical History: No Pertinent History Genitourinary Surgical Hx: No Pertinent History Musculskeletal Surgical Hx: No Pertinent History Female Surgical History: No Pertinent History Other Surgical History: Pt denies - Social History Smoking Status: Light tobacco smoker Exposure to second hand smoke: Yes Alcohol: Occasionally Drug Use: other - Physical Exam Vital Signs: Vital Signs - 24 hr Temp Pulse Resp BP BP Pulse Ox 07/12/23 07:30 136/93 07/12/23 07:00 82 19 139/86 96 07/12/23 06:30 95 H 21 148/95 97 07/12/23 06:00 88 16 115/80 99 07/12/23 05:52 97 07/12/23 05:30 82 16 139/106 98 07/12/23 05:29 99 H 15 162/96 99 07/12/23 05:00 104 H 126/88 99 07/12/23 04:49 84 15 84/73 98 07/12/23 04:48 89 15 07/12/23 04:46 89 16 100 07/12/23 04:20 101 H 18 07/12/23 04:10 102 H 22 07/12/23 04:02 99 07/12/23 04:00 110 H 20 07/12/23 03:30 105 H 18 161/112 99 07/12/23 03:24 112 H 24 97 07/12/23 03:08 114 H 19 166/117 100 07/12/23 03:07 97.4 F 109 H 20 166/117 99 General Appearance: no apparent distress Neurologic Exam: alert, oriented x 3 Ears, Nose, Throat Exam: dry mucous membranes Neck Exam: supple Respiratory Exam: wheezing, No respiratory distress Cardiovascular Exam: regular rate/rhythm Gastrointestinal/Abdomen Exam: soft Extremity Exam: No pedal edema, No swelling Skin Exam: normal color, No rash Results - Labs Lab/Micro Results: Lab Results-Last 24 Hours 07/12/23 07/12/23 07/12/23 Range/Units 04:38 04:38 04:38 WBC 11.4 H (4.0-10.5) x10^3/uL RBC 4.14 (4.1-5.4) x10^6/uL Hgb 13.1 (12.0-16.0) g/dL Hct 39.5 (35-47) % MCV 95.4 (78-100) fL MCH 31.6 (26-32) pg MCHC 33.2 (32-36) g/dL RDW 12.2 (11.5-14.0) % Plt Count 385 (150-450) x10^3/uL MPV 9.7 (7.5-11.0) fL Gran % 69.4 H (36.0-66.0) % Immature Gran % (Auto) 0.3 (0.00-0.4) % Nucleat RBC Rel Count 0.0 (0.00-0.1) % Eos # (Auto) 0.89 H (0-0.5) x10^3/uL Immature Gran # (Auto) 0.03 (0.00-0.03) x10^3u/L Absolute Lymphs (auto) 1.83 (1.0-4.6) x10^3/uL Absolute Monos (auto) 0.63 (0.0-1.3) x10^3/uL Absolute Nucleated RBC 0.00 (0.00-0.01) x10^3u/L Lymphocytes % 16.0 L (24.0-44.0) % Monocytes % 5.5 (0.0-12.0) % Eosinophils % 7.8 H (0.00-5.0) % Basophils % 1.0 (0.0-0.4) % Absolute Granulocytes 7.93 H (1.4-6.9) x10^3/uL Basophils # 0.11 (0-0.4) x10^3/uL D-Dimer < 0.19 (0.0-0.50) mg/L Urine Color Yellow (Yellow) Urine Appearance Clear (Clear) Urine pH 6.5 (4.6-8.0) Ur Specific [place] 1.015 (1.005-1.030) Urine Protein Negative (Negative) Urine Glucose (UA) Negative (Negative) mg/dL Urine Ketones Negative (Negative) Urine Blood Negative (Negative) Urine Nitrite Negative (Negative) Urine Bilirubin Negative (Negative) Urine Urobilinogen 0.2 (0.2) mg/dL Ur Leukocyte Esterase Negative (Negative) U Hyaline Cast (Auto) NONE SEEN (0-2) /LPF Urine Microscopic RBC 0-2 (0-5) /HPF Urine Microscopic WBC 0-2 (0-5) /HPF Ur Epithelial Cells None Seen (None Seen) /HPF Urine Bacteria None Seen (None Seen) /HPF Urine Culture Reflexed NO (NO) Urine HCG, Qual (NEGATIVE) Influenza Type A Ag (NEGATIVE) Influenza Type B Ag (NEGATIVE) RSV (PCR) (NEGATIVE) SARS-CoV-2 (PCR) (NEGATIVE) 07/12/23 07/12/23 Range/Units 04:38 04:38 WBC (4.0-10.5) x10^3/uL RBC (4.1-5.4) x10^6/uL Hgb (12.0-16.0) g/dL Hct (35-47) % MCV (78-100) fL MCH (26-32) pg MCHC (32-36) g/dL RDW (11.5-14.0) % Plt Count (150-450) x10^3/uL MPV (7.5-11.0) fL Gran % (36.0-66.0) % Immature Gran % (Auto) (0.00-0.4) % Nucleat RBC Rel Count (0.00-0.1) % Eos # (Auto) (0-0.5) x10^3/uL Immature Gran # (Auto) (0.00-0.03) x10^3u/L Absolute Lymphs (auto) (1.0-4.6) x10^3/uL Absolute Monos (auto) (0.0-1.3) x10^3/uL Absolute Nucleated RBC (0.00-0.01) x10^3u/L Lymphocytes % (24.0-44.0) % Monocytes % (0.0-12.0) % Eosinophils % (0.00-5.0) % Basophils % (0.0-0.4) % Absolute Granulocytes (1.4-6.9) x10^3/uL Basophils # (0-0.4) x10^3/uL D-Dimer (0.0-0.50) mg/L Urine Color (Yellow) Urine Appearance (Clear) Urine pH (4.6-8.0) Ur Specific [place] (1.005-1.030) Urine Protein (Negative) Urine Glucose (UA) (Negative) mg/dL Urine Ketones (Negative) Urine Blood (Negative) Urine Nitrite (Negative) Urine Bilirubin (Negative) Urine Urobilinogen (0.2) mg/dL Ur Leukocyte Esterase (Negative) U Hyaline Cast (Auto) (0-2) /LPF Urine Microscopic RBC (0-5) /HPF Urine Microscopic WBC (0-5) /HPF Ur Epithelial Cells (None Seen) /HPF Urine Bacteria (None Seen) /HPF Urine Culture Reflexed (NO) Urine HCG, Qual NEGATIVE (NEGATIVE) Influenza Type A Ag NEGATIVE (NEGATIVE) Influenza Type B Ag NEGATIVE (NEGATIVE) RSV (PCR) NEGATIVE (NEGATIVE) SARS-CoV-2 (PCR) NEGATIVE (NEGATIVE) - Radiology Impressions Radiology Exams & Impressions: Radiology Procedures Category Date Time Status CHEST 1 VIEW (PORTABLE) Stat Exams 07/12/23 05:01 Taken Assessment/Plan (1) Cough Current Visit: Yes Status: Acute Qualifiers: Cough type: acute Qualified Code(s): R05.1 - Acute cough Assessment & Plan: Likely asthma exacerbation versus bronchitis, no evidence of pneumonia 1. Admit to observation status 2. Start IV solumedrol, duonebs, supplemental oxygen 3. Monitor O2 sats 4. Will hold off on further antibiotics for now, obtain sputum culture 5. DVT prophylaxis 6. Should get PFTs as outpatient after discharge Code(s): R05.9 - COUGH, UNSPECIFIED Telemedicine Encounter - Telemedicine Encounter Telemedicine Encounter: The entirety of this encounter was performed via Telemedicine"
[2023-07-12] MEDS ORDERED: TYLENOL 325 MG PO PRN (08:48)
[2023-07-12] MEDS ORDERED: Docusate Sodium 100 MG PO PRN (08:48)
--- NOTE | 2023-07-12 08:53 | XRAY ---
Indication: Cough and short of breath. Comparison: June 21, 2023 Portable chest again demonstrates normal heart, lungs, and bony thorax.
--- NOTE | 2023-07-12 10:20 | PCM.DS ---
Discharge Summary Date of Admission: 07/12/23 08:08 Date of Discharge: 07/12/23 Admitting Physician: HANNA BEAVERS MD Primary Care Provider: NEVIN CLARKE Allergies Allergies No Known Drug Allergies Allergy (Verified 07/12/23 03:08) Hospital Summary - Hospital Course Hospital Course: Ms. KINGSLEY is a 27 year old female with a history of exercise induced asthma. She presented to the ER with complaints of increasing shortness of breath and non productive cough for about a month. She had taken Medrol dose pack which helped a little bit but took her last dose about a week and a half ago. She was evaluated in the ER with a persistent wheeze, was given steroids/nebulizers but did not improve, so she has been recommended for admission. She was also given one dose of Rocephin. CXR appears clear, d-dimer normal. She denies any fever or chills. She denies any chest pain or palpitations. No nausea, vomiting or diarrhea. No dysuria, hematuria or foamy urine. She states that she does smoke occasionally when she drinks alcohol. She is currently room air 96% O2. Lung sounds are clear. She is feeling much better since breathing txs in ER she reports. If she continues to do well will let her d/c this afternoon. Will have CM assist with home neb machine. Will also send in Albuterol inhaler if she is away from home and has an exacerbation. She denies current CP, SOB, abd. pain, N/V/D. - Vitals & Intake/Output Vital Signs: Vital Signs Temperature 97.2 F 07/12/23 08:10 Pulse Rate 87 07/12/23 08:10 Respiratory Rate 18 07/12/23 08:10 Blood Pressure 128/86 07/12/23 08:10 O2 Sat by Pulse Oximetry 97 07/12/23 09:35 Intake & Output: Intake & Output 07/09/23 07/10/23 07/11/23 07/12/23 11:59 11:59 11:59 11:59 Weight 82.1 kg - Lab Result Diagrams: 07/12/23 04:38 Lab Results-Last 24 Hrs: Lab Results-Last 24 Hours 07/12/23 07/12/23 07/12/23 Range/Units 04:38 04:38 04:38 WBC 11.4 H (4.0-10.5) x10^3/uL RBC 4.14 (4.1-5.4) x10^6/uL Hgb 13.1 (12.0-16.0) g/dL Hct 39.5 (35-47) % MCV 95.4 (78-100) fL MCH 31.6 (26-32) pg MCHC 33.2 (32-36) g/dL RDW 12.2 (11.5-14.0) % Plt Count 385 (150-450) x10^3/uL MPV 9.7 (7.5-11.0) fL Gran % 69.4 H (36.0-66.0) % Immature Gran % (Auto) 0.3 (0.00-0.4) % Nucleat RBC Rel Count 0.0 (0.00-0.1) % Eos # (Auto) 0.89 H (0-0.5) x10^3/uL Immature Gran # (Auto) 0.03 (0.00-0.03) x10^3u/L Absolute Lymphs (auto) 1.83 (1.0-4.6) x10^3/uL Absolute Monos (auto) 0.63 (0.0-1.3) x10^3/uL Absolute Nucleated RBC 0.00 (0.00-0.01) x10^3u/L Lymphocytes % 16.0 L (24.0-44.0) % Monocytes % 5.5 (0.0-12.0) % Eosinophils % 7.8 H (0.00-5.0) % Basophils % 1.0 (0.0-0.4) % Absolute Granulocytes 7.93 H (1.4-6.9) x10^3/uL Basophils # 0.11 (0-0.4) x10^3/uL D-Dimer < 0.19 (0.0-0.50) mg/L Urine Color Yellow (Yellow) Urine Appearance Clear (Clear) Urine pH 6.5 (4.6-8.0) Ur Specific [place] 1.015 (1.005-1.030) Urine Protein Negative (Negative) Urine Glucose (UA) Negative (Negative) mg/dL Urine Ketones Negative (Negative) Urine Blood Negative (Negative) Urine Nitrite Negative (Negative) Urine Bilirubin Negative (Negative) Urine Urobilinogen 0.2 (0.2) mg/dL Ur Leukocyte Esterase Negative (Negative) U Hyaline Cast (Auto) NONE SEEN (0-2) /LPF Urine Microscopic RBC 0-2 (0-5) /HPF Urine Microscopic WBC 0-2 (0-5) /HPF Ur Epithelial Cells None Seen (None Seen) /HPF Urine Bacteria None Seen (None Seen) /HPF Urine Culture Reflexed NO (NO) Urine HCG, Qual (NEGATIVE) Influenza Type A Ag (NEGATIVE) Influenza Type B Ag (NEGATIVE) RSV (PCR) (NEGATIVE) SARS-CoV-2 (PCR) (NEGATIVE) 07/12/23 07/12/23 Range/Units 04:38 04:38 WBC (4.0-10.5) x10^3/uL RBC (4.1-5.4) x10^6/uL Hgb (12.0-16.0) g/dL Hct (35-47) % MCV (78-100) fL MCH (26-32) pg MCHC (32-36) g/dL RDW (11.5-14.0) % Plt Count (150-450) x10^3/uL MPV (7.5-11.0) fL Gran % (36.0-66.0) % Immature Gran % (Auto) (0.00-0.4) % Nucleat RBC Rel Count (0.00-0.1) % Eos # (Auto) (0-0.5) x10^3/uL Immature Gran # (Auto) (0.00-0.03) x10^3u/L Absolute Lymphs (auto) (1.0-4.6) x10^3/uL Absolute Monos (auto) (0.0-1.3) x10^3/uL Absolute Nucleated RBC (0.00-0.01) x10^3u/L Lymphocytes % (24.0-44.0) % Monocytes % (0.0-12.0) % Eosinophils % (0.00-5.0) % Basophils % (0.0-0.4) % Absolute Granulocytes (1.4-6.9) x10^3/uL Basophils # (0-0.4) x10^3/uL D-Dimer (0.0-0.50) mg/L Urine Color (Yellow) Urine Appearance (Clear) Urine pH (4.6-8.0) Ur Specific [place] (1.005-1.030) Urine Protein (Negative) Urine Glucose (UA) (Negative) mg/dL Urine Ketones (Negative) Urine Blood (Negative) Urine Nitrite (Negative) Urine Bilirubin (Negative) Urine Urobilinogen (0.2) mg/dL Ur Leukocyte Esterase (Negative) U Hyaline Cast (Auto) (0-2) /LPF Urine Microscopic RBC (0-5) /HPF Urine Microscopic WBC (0-5) /HPF Ur Epithelial Cells (None Seen) /HPF Urine Bacteria (None Seen) /HPF Urine Culture Reflexed (NO) Urine HCG, Qual NEGATIVE (NEGATIVE) Influenza Type A Ag NEGATIVE (NEGATIVE) Influenza Type B Ag NEGATIVE (NEGATIVE) RSV (PCR) NEGATIVE (NEGATIVE) SARS-CoV-2 (PCR) NEGATIVE (NEGATIVE) - Radiology Exams Ordered Rad Exams-Entire Visit: Radiology Procedures Category Date Time Status CHEST 1 VIEW (PORTABLE) Stat Exams 07/12/23 05:01 Completed - Procedures and Test Procedures and Tests throughout Hospitalization: Therapy Orders & Screens 07/12/23 03:23 Respiratory Therapy Assessment DAILY Comment: 07/12/23 08:46 Smoking Cessation Education ONCE Comment: Diagnosis: Reactive airway, shortness of breath tachycardia Smoking Status: Light tobacco smoker How long have you smoked: 10 years Do you dip or chew tobacco: No 07/12/23 08:48 Respiratory Therapy Consult ONCE Comment: Reason For Exam: Diagnosis: Reactive airway, shortness of breath tachycardia Discharge Exam General Appearance: no apparent distress, alert Neurologic Exam: alert, oriented x 3, cooperative, normal mood/affect, nml cerebellar function, sensation nml, No motor deficits Eye Exam: PERRL, EOMI, eyes nml inspection Ears, Nose, Throat Exam: normal ENT inspection, pharynx normal, moist mucous membranes Neck Exam: normal inspection, non-tender, supple, full range of motion Respiratory Exam: normal breath sounds, lungs clear, No respiratory distress Cardiovascular Exam: regular rate/rhythm, normal heart sounds Gastrointestinal/Abdomen Exam: soft, No tenderness, No mass Pelvic Exam: deferred Rectal Exam: deferred Back Exam: normal inspection, normal range of motion, No CVA tenderness, No vertebral tenderness Extremity Exam: normal inspection, normal range of motion Skin Exam: normal color, warm, dry Final Diagnosis/Problem List - Final Discharge Diagnosis/Problem (1) Asthma exacerbation Current Visit: Yes Status: Acute Assessment & Plan: 1. Admit to observation status 2. Start IV solumedrol, duonebs, supplemental oxygen PRN 3. Monitor O2 sats 4. Will hold off on further antibiotics for now, obtain sputum culture 5. DVT prophylaxis 6. Should get PFTs as outpatient after discharge 7. Chest XR negative 8. tele 9. COVID/FLU/RSV negative Code(s): J45.901 - UNSPECIFIED ASTHMA WITH (ACUTE) EXACERBATION (2) Shortness of breath Current Visit: Yes Status: Acute Assessment & Plan: - 2:2 asthma exacerbation - improved since admission - RA 96% Code(s): R06.02 - SHORTNESS OF BREATH (3) Smoker Current Visit: Yes Status: Chronic Assessment & Plan: - advised cessation Code(s): F17.200 - NICOTINE DEPENDENCE, UNSPECIFIED, UNCOMPLICATED - Discharge Discharge Date: 07/12/23 Disposition: Home, Self-Care Condition: Stable Prescriptions: Continue Phentermine HCl [Adipex-P] 37.5 mg PO DAILY Topiramate [Topamax] 25 mg PO DAILY Follow up with: NEVIN CLARKE NP [Primary Care Provider] -
[2023-07-12] MEDS: TOPIRAMATE PO SCH (10:52)
[2023-07-12] MEDS: ENOXAPARIN SODIUM SQ SCH (10:52)
[2023-07-12 12:11] VITALS: BP 144/76; PULSE 84; RESP 16; TEMP 97.8
[2023-07-12] MEDS: DUONEB 0.5-3 MG/3 ml Neb IH SCH (13:19)
[2023-07-12 13:26] VITALS: O2SAT 94
[2023-07-12] MEDS: solu-MEDROL 40 MG, Sterile H2O 10 ml 1 ML IV SCH (14:30)
== END 2023-07-12 16:49 | disposition home or self-care (01) ==
LOC: ED 03:07 → MED SURG 08:08
PROVIDERS: ADMIT Internal Medicine; ATTEND Internal Medicine
DX: J45.901 Unspecified asthma with (acute) exacerbation (principal); R06.02 Shortness of breath; R05.1 Acute cough; F17.200 Nicotine dependence, unspecified, uncomplicated; Z20.828 Contact with and (suspected) exposure to other viral communicable diseases
CPT/HCPCS: 0241U; 36000; 36415; 71045; 81001; 81025; 85025; 85379; 93005; 93041; 93268; 94640; 94760; 94762; 96372; 99285; J0456; J0696; J2405; J2920; J2930; J3475; J7609; Q3014; A9270-GY; G0378